=== PATIENT | female | born 1945 | race Caucasian/White ===

== ENCOUNTER 2019-10-26 06:53 | Day surgery (SDC) | payer MEDICARE ==
[~2019-10-26] VITALS: Ht 154.9 cm; Wt 69.9 kg
[~2019-10-26 06:53] MED LIST: AMLODIPINE BESY10 MG PO; AVAPRO300 MG PO; BIOTIN EXTR10000 MCG PO; BUSPIRONE5 MG PO; CENTRUM WOMEN1 TAB PO; LIPITOR20 M1 PO; OMEPRAZOLE DR40 MG PO; SERTRALINE50 MG PO; TRAZODONE50 MG PO
[2019-10-26 09:18] VITALS: BP 204/94
== END 2019-10-26 09:35 | disposition home or self-care (01) ==
LOC: ENDO 06:53 → PO 08:00 → ORM 08:45 → PO 08:45 → ENDO 09:35
PROVIDERS: ATTEND Surgery
PROC: 0DB48ZX Excision of Esophagogastric Junction, Via Natural or Artificial Opening Endoscopic, Diagnostic (ICD-10-PCS; principal; 2019-10-26)
PROC: 0DB78ZX Excision of Stomach, Pylorus, Via Natural or Artificial Opening Endoscopic, Diagnostic (ICD-10-PCS; 2019-10-26)
DX: K29.50 Unspecified chronic gastritis without bleeding (principal); K44.9 Diaphragmatic hernia without obstruction or gangrene; K21.0 Gastro-esophageal reflux disease with esophagitis; I10 Essential (primary) hypertension; Z11.59 Encounter for screening for other viral diseases